=== PATIENT | female | born 1935 | race Caucasian/White ===

== ENCOUNTER 2019-02-11 04:56 | Emergency (ER) | payer MEDICARE ==
[~2019-02-11] VITALS: Ht 149.9 cm; Wt 55.9 kg
[2019-02-11 05:01] VITALS: Ht 149.9 cm; Wt 55.9 kg
[2019-02-11] MEDS ORDERED: LISINOPRIL20 MG PO (05:07)
[2019-02-11] MEDS ORDERED: ARTHRITIS MED (05:07)
[2019-02-11] MEDS ORDERED: HYDROCHLOROTHIA25 MG PO (05:08)
[2019-02-11 05:26] LABS: BASOPHILS 0.4 % (0-2); EOSINOPHILS 3.9 % (0-7); HEMOGLOBIN 10.3 g/dL (12-16); IMMATURE GRANULOCYTES 0.2 % (0-5); MCH 28.5 pg (26.0-34.0); MCHC 32.2 g/dL (31.0-37.0); MCV 88.4 fL (80.0-100.0); MONOCYTES 7.8 % (2-11); NEUTROPHILS 59.7 % (40-80); RBC 3.62 10x6/uL (4.00-5.40); RDW 15.7 % (11.5-14.5); WBC 9.2 10x3/uL (4.8-10.8)
[2019-02-11 05:30] LABS: PLATELET COUNT 316 10x3/uL (130-400)
[2019-02-11 05:36] LABS: APTT 28.6 SECONDS (22.8-39.4); CALC OSMOLALITY 285 mosm/kg (275-300); CALCIUM 8.7 mg/dL (8.5-10.1); CARBON DIOXIDE 20.7 mmol/L (21.0-32.0); CHLORIDE - SERUM 104 mmol/L (98-107); CREATININE - SERUM 1.3 mg/dL (0.6-1.3); GLUCOSE 116 mg/dL (74-106); INR 1.01 (0.85-1.17); POTASSIUM - SERUM 4.5 mmol/L (3.5-5.1); PROTIME 12.8 SECONDS (11.6-15.0); SODIUM 137 mmol/L (136-145); UREA NITROGEN 43 mg/dL (7-18); eGFR NON AFRICAN AMERICAN 41 mL/min (90-120)
[2019-02-11 05:54] LABS: ALBUMIN 3.7 g/dL (3.4-5.0); ALKALINE PHOSPHATASE 73 U/L (46-116); ALT (SGPT) 23 U/L (10-68); BILIRUBIN - TOTAL 0.32 mg/dL (0.2-1.3); CKMB 6.8 U/L (0.0-3.6); CREATINE KINASE 82 UL (21-215); PRO BNP 1166 pg/mL (0-450); PROTEIN - SERUM 7.4 g/dL (6.4-8.2); TROPONIN-I 0.016 ng/mL (0.000-0.060)
[2019-02-11 09:37] VITALS: BP 155/70
== END 2019-02-11 09:37 | disposition home or self-care (01) ==
LOC: D.ER 04:56
PROVIDERS: Family Medicine
DX: R06.02 Shortness of breath (principal); I10 Essential (primary) hypertension